=== PATIENT | female | born 1945 | race Caucasian/White ===

== ENCOUNTER → 2023-11-09 14:01 | Outpatient (REF) | payer MEDICARE, SELFPAY | LOC: RCS 14:01 | PROVIDERS: ATTENDING PHYSICIAN Internal Medicine Cardiovascular Disease; FAMILY PHYSICIAN Family Medicine | DX: I48.0 Paroxysmal atrial fibrillation (principal) | CPT/HCPCS: 93306 ==

== ENCOUNTER → 2024-11-11 14:03 | Outpatient (REF) | payer MEDICARE, SELFPAY | LOC: HWWDC 14:03 | PROVIDERS: ATTENDING PHYSICIAN Physician Assistant Medical | DX: Z12.31 Encounter for screening mammogram for malignant neoplasm of breast (principal) | CPT/HCPCS: 77063; 77067 ==